=== PATIENT | female | born 1960 | race Caucasian/White ===

== ENCOUNTER 2017-01-13 07:00 | Inpatient (IN) ==
[2017-01-07 14:56] LABS: Basophils % 0.5 % (0.0-0.8); Eosinophils # 0.1 10*3/uL (0.0-0.87); Eosinophils % 1.2 % (0.00-10.9); Hematocrit 34.9 VOL% (35.7-47.0); Hemoglobin 12.3 GM/DL (12.0-16.0); Immature Granulocytes % 0.5 %; Immature Granulocytes Absolute 0.03 #; Lymphocytes % 35.2 % (21.3-54.2); Mean Corpuscular HGB Conc 35.2 GM/DL (32-36); Mean Corpuscular Hemoglobin 30 PG (27-34); Mean Corpuscular Volume 84.5 FL (87-102); Mean Platelet Volume 10.6 FL (9.6-12.0); Monocytes # 0.4 10*3/uL (0.11-0.8); Monocytes % 6.4 % (1.7-12.7); Neutrophils # 3.2 10*3/uL (1.4-7.4); Neutrophils % 56.2 % (38.7-73.9); Platelet Count 221 T/CUMM (130-400); Red Blood Count 4.13 MC/CUMM (3.8-5.5); Red Cell Distribution Width 14.2 % (9.3-17.3); White Blood Count 5.8 T/CUMM (4-12)
--- NOTE | 2017-01-07 14:59 | XRay Report ---
2 view chest January 07, 2017 1456 hours Indication: Shortness of breath Comparison: October 20, 2013 Findings: Cardiomediastinal contours are normal. Lungs are clear bilaterally. No acute osseous abnormalities. Visualized upper abdomen demonstrates no acute pathology. Impression: Normal chest PROCEDURE INTERPRETED AT [facility] DEPARTMENT OF RADIOLOGY Final Report Signed by: Walker Luna
--- NOTE | 2017-01-07 15:01 | EKG Report ---
Stationary ECG Study [facility] Test Date: 01/07/2017 2:59:45 PM Pat Name: GREGORIA FREEDMAN Department: Room: Gender: F Decorator Consultant: EMETERIO 01-13-17 : 1960 Requested by: Tylor Austin Order Number: [id number] Reading MD: TAMEKA PRYOR Intervals [place] Rate: 88 P: 50 RI: 173 QRS: 30 QRSD: 85 T: -13 QT: 322 QTc: 368 Interpretive Statements SINUS RHYTHM LOW QRS VOLTAGE IN PRECORDIAL LEADS Electronically Signed On 01-07-17 20:32:28 CDT by TAMEKA PRYOR [email or web address]
[2017-01-07 15:13] LABS: Partial Thromboplastin Time 23.9 SECS (0-40)
[2017-01-07 15:23] LABS: Albumin 3.5 G/DL (3.4-5.0); Bilirubin,Total 0.4 MG/DL (0.2-1.0); Calcium 9.1 MG/DL (8.5-10.1); Osmolality,Calculated 293.3 MOS/KG (273-304); Potassium 4.3 MMOL/L (3.5-5.1); Total Protein 7.2 G/DL (6.4-8.3)
[~2017-01-13 07:00] MED LIST: LACTATED RINGERS 1,000 ML IV SCH; LEVOFLOXACIN INJ 100 ML IV ONE; LEVOFLOXACIN INJ 500 MG in PREMIX 1 EACH IV ONE
[2017-01-13] MEDS ORDERED: DIAZEPAM 5 MG TABLET PO ONE (08:55)
[2017-01-13] MEDS ORDERED: FAMOTIDINE 20 MG TABLET PO ONE (08:55)
[2017-01-13] MEDS ORDERED: DIAZEPAM 5 MG TABLET ONE (09:00)
[2017-01-13] MEDS ORDERED: FAMOTIDINE 20 MG TABLET ONE (09:00)
--- NOTE | 2017-01-13 11:35 | History and Physical Update ---
History and Physical Update - History and Physical H&P was reviewed, the patient examined and there: are no changes in the patients condition since last H&P was completed. - Dictation Physical: refer to scanned H&P - Physical Exam Mental Status: alert and oriented Heart: regular rate and rhythm Lung: clear to auscultation Abdomen: within normal limits Vitals: within normal limits (Left side marked)
[2017-01-13] MEDS ORDERED: diphenhydrAMINE 50 MG/1 ML VIAL ONE (12:30)
[2017-01-13] MEDS ORDERED: PROPOFOL 200 MG/20 ML VIAL IV ONE (12:30)
[2017-01-13] MEDS ORDERED: ROCURONIUM 100 MG/10 ML VIAL IV ONE (12:30)
[2017-01-13] MEDS ORDERED: PHENYLEPHRINE 1 MG/10 ML SYRINGE IV ONE (12:30)
[2017-01-13] MEDS ORDERED: PHENYLEPHRINE 50 MG/5 ML VIAL ONE (12:30)
[2017-01-13] MEDS ORDERED: LIDOCAINE 1% 5 ML VIAL ONE (12:30)
[2017-01-13] MEDS ORDERED: ONDANSETRON 4 MG/2 ML VIAL ONE (12:30)
--- NOTE | 2017-01-13 16:07 | Operative Note ---
Date of procedure: 01/13/17 Pre-op diagnosis: LEFT Staghorn Calculus Post-op diagnosis: same Procedure: Left Percutaneous Nephrolithotomy with stone extraction Left Antegrade Ureteral stent placement Indication for procedure: This is a 57-year-old female with history of recurrent urinary tract infections and hematuria. She had a CT scan which demonstrated a left complete staghorn calculus. She has a history of diabetes. She also has hypertension. She did have adequate function to this renal unit. Due to this and her comorbidities she elected for PCNL to salvage the kidney. She was given the options of surgical management. She understood the risks benefits and alternatives. She understood the risk of bleeding, infection , even loss of renal unit. She elected to proceed. Procedure in detail: The 57-year-old female was brought to the operating room after informed consent. She was placed supine on the operating table. Proper monitoring devices and SCDs were in place and functioning prior to the start of the case. A Galdamez catheter was placed prior to start of the case. She was induced with general anesthetic. She was then moved prone on the operating table. She was secured to the frame. Initially timeout was performed and the radiologist obtain the lower pole axis to the left kidney. He is unable to obtain upper pole access successfully to get a dilation but he did obtain access. At this point it was elected to proceed with the lower pole access only. After completion of his case portion, the case was turned over to sc Operative timeout, the access sheath was accessed with the rigid nephroscope. The Olympus pull shock device was used to fragment the stone with ultrasound and suction was used to remove the fragments. Several large fragments were grasped with rigid graspers and passed off the field for culture and for stone analysis. The kidney was systematically surveyed in the stone was removed from both lower pole, renal pelvis, interpolar, and upper pole calyces. Finally a flexible cystoscope was used to obtain access to interpolar calyx. These were some's all small fragments that were washed out and then grasped and retrieved. There were no other fragments that we could reach her. It we have appeared to clear over 90% of the stone. Finally a flexible ureteroscope was passed and attempted to pass down the ureter. We are unable to do this as the scope could not make the turn. At this point we placed a 6 Palauan by 24 cm double-J ureteral stent antegrade with a curl in the bladder. The sheath was removed and the lower pole had a 16 Pal[place]an [place] tip catheter placed as a nephrostomy tube. This was left to drainage. The upper pole access area was closed. The patient tolerated procedure well and this concluded the case. She was moved back on the stretcher and transferred to the recovery room in stable condition Will obtain a stat upright chest x-ray due to upper pole access attempt Obtain CBC and BMP Start gentamicin as well as continue Levaquin as there were some pyuria with access. A urine culture was taken and sent for analysis. Implants: 6 Palauan by 24 cm double-J ureteral stent placed antegrade to the left ureter Anesthesia: GETA Surgeon / Physician: Tylor Austin Estimated blood loss: other (50 cc) Specimens: other (Stone fragments for analysis, stone culture, urine culture) Condition: stable Disposition: PACU Results - Labs CBC & BMP: 01/07/17 14:45 01/07/17 14:45 Lab Results: I have reviewed the past 24 hour labs - Diagnostic Findings Procedure: CT Abdomen and Pelvis: image reviewed by me, report reviewed by me Discharge Plan - Discharge Medications No Action Gemfibrozil [Lopid] 600 mg PO BID glipiZIDE [Glipizide] 10 mg PO BID Metformin HCl 1 gram PO BID Gabapentin Cap/Tab [Neurontin Cap/Tab] 300 mg PO BID Nitrofurantoin Macrocrystal [Nitrofurantoin] 100 mg PO Q12HR Liraglutide [Victoza 2-Andi] 0.6 mg SQ DIRECTED Lisinopril 10 mg PO DAILY - Follow Up or Referral - Forms/Instructions
--- NOTE | 2017-01-13 16:08 | Anesthesia Post-Op ---
Anesthesia Post OP - Post Ansesthetic Evaluation Patient seen in post op: Yes Resp: within normal limits CV: within normal limits Mental: within normal limits Temp: within normal limits [id number]: within normal limits Nausea and Vomiting: within normal limits Pain: within normal limits
[2017-01-13] MEDS ORDERED: SEVOFLURANE 1 UNIT/15 MINUTE INH ONE (16:15)
[2017-01-13] MEDS ORDERED: MIDAZOLAM 2 MG/2 ML VIAL ONE (16:16)
[2017-01-13] MEDS ORDERED: HYDROmorphone 2 MG/1 ML VIAL ONE (16:16)
[2017-01-13] MEDS ORDERED: LACTATED RINGERS 1,000 ML IV ONE (16:16)
[2017-01-13] MEDS ORDERED: HYDROmorphone PCA 30 MG/30 ML SYRINGE IV ONE (16:23)
--- NOTE | 2017-01-13 16:24 | XRay Report ---
History: Postop left nephrostomy tube placement and percutaneous nephrolithotomy, left kidney. History of hypertension Date: 01/13/2017 Study: Chest x-ray AP portable Comparison exam: January 07, 2017 There is no evidence of pneumothorax. The cardiac silhouette is upper normal size. There is no mediastinal mass. The lungs and pleural spaces are clear. The osseous structures are unchanged. There is mild to moderate thoracic spondylosis. Impression: No acute cardiopulmonary process. No significant interval change PROCEDURE INTERPRETED AT [facility] DEPARTMENT OF RADIOLOGY Final Report Signed by: Dr. Meli Grigsby
--- NOTE | 2017-01-13 16:26 | Interventional Radiology Rpt ---
IR nephrostomy dil LT Indication: Staghorn calculus left kidney. Percutaneous lithotomy for Dr. Tylor Austin. LEFT PERCUTANEOUS NEPHROSTOMY X2, LEFT ANTEGRADE NEPHROURETEROGRAM X2, LEFT NEPHROMAX SHEATH POSITIONING FOR PERCUTANEOUS LITHOTOMY Description: A formal timeout was performed. Patient was placed under general endotracheal anesthesia and rolled onto the operating table on a Octavio frame in a prone position. The left back was prepped and draped in a sterile fashion. Maximum sterile barrier technique was instituted. Sonographic evaluation of the left kidney shows calculi throughout the kidney, as well as mild pelvic caliectasis of both the upper and lower poles. Skin incision was made. An AccuStick needle was advanced into the lower pole collecting system of the left kidney under sonographic guidance. Captured sonographic image documents position of the needle. Needle was exchanged over a wire for a sheath and an aspirate of cloudy purulent urine was obtained for culture and Gram stain. Antegrade nephroureterogram was performed confirming staghorn calculus with multiple smaller stones throughout the left urinary collecting system and a normal size ureter. Kumpe catheter was then used to cannulate the left ureter. A J-wire was advanced through the Kumpe catheter until the floppy portion was in the urinary bladder. The sheath was removed over the wire and a NephroMax balloon advanced across the skin to renal tract. The NephroMax balloon was inflated, and a 30 Bhutanese no fractures easily advanced into the lower pole of the left collecting system. The sheath, balloon and wire were left in place. Attention was then turned to the upper pole the left kidney which has mild pelvic caliectasis. After making a skin incision, under ultrasound guidance, an AccuStick needle was advanced into the left renal upper pole collecting system. Captured sonographic image documents position of the needle. The urine that return in the hub of the needle was clear and yellow. Therefore, no sample was obtained. Microwire was advanced through the needle and the needle exchanged for a sheath. Through the sheath, antegrade nephroureterogram was again performed showing large filling defect in the infundibulum of the upper pole collecting system and no contrast passage into the renal pelvis indicating complete obstruction. Extensive effort was made with multiple catheters and wires to pass into the left renal pelvis but due to the obstructing staghorn calculus protruding well into the upper pole collecting system, no conduit was established. After discussed with Dr. Austin, access to the upper pole was abandoned. At this point, Dr. Wilhelm over the case for percutaneous lithotomy, details under a separate note. Medications: GETA. Contrast: Total volume not recorded. Estimated 100 cc Omnipaque 350. Fluoroscopy time: Total fluoroscopy time for both the percutaneous intervention by me, as well as the imaging required during performance of the lithotomy by Dr. Austin, 16.0 minutes. Total of 21 captured images. Impression: 1. Successful percutaneous nephrostomy of the lower pole left kidney with placement of a 30 Bhutanese NephroMax sheath for percutaneous lithotomy. 2. Successful percutaneous nephrostomy of the upper pole left kidney. However, antegrade nephroureterogram confirms a obstructing staghorn calculus in the infundibulum of the upper pole and despite extensive effort, unable to pass a wire or catheter beyond the obstructing stone. Therefore, no percutaneous access or drainage left in place for the upper pole. PROCEDURE INTERPRETED AT [facility] DEPARTMENT OF RADIOLOGY Final Report Signed by: Manuelito Velasquez M.D.
[2017-01-13 16:33] LABS: Apearance,Urine CLOUDY (Clear); Bilirubin,Urine Negative (Negative); Blood, Urine Small mg/dL (Negative); Glucose,Urine (UA) >=500 mg/dL (Negative); Ketones,Urine 5 mg/dL (Negative); Mucus,Urine Occasional /LPF (Occasional); Nitrite,Urine Negative (Negative); Protein,Urine Negative; RBC,Urine 2 /HPF (0-4); Squamous Epithelial Cell,Urine Occasional /HPF (0-10); Urine Color Yellow (Yellow); Urine Specific Gravity 1.012 (1.001-1.035); Urine Urobilinogen < 2.0 EU/DL (0.2-1.0); WBC,Urine 7 /HPF (0-6)
[2017-01-13] MEDS: HYDROmorphone PCA 30 MG/30 ML SYRINGE IV SCH (16:33)
[2017-01-13] MEDS ORDERED: LABETALOL 20 MG/4 ML SYRINGE IV ONE (16:47)
[2017-01-13] MEDS ORDERED: ALBUTEROL/IPRATROPIUM 3 ML NEB RESP TX PRN (16:47)
[2017-01-13] MEDS ORDERED: ONDANSETRON 4 MG/2 ML VIAL IV PRN (16:47)
[2017-01-13] MEDS ORDERED: NALOXONE 0.4 MG/ML VIAL IV PRN (16:47)
[2017-01-13] MEDS ORDERED: diphenhydrAMINE 50 MG/1 ML VIAL IV PRN (16:47)
[2017-01-13] MEDS ORDERED: GENTAMICIN INJ 120 MG in PREMIX 1 EACH IV ONE (16:47)
[2017-01-13] MEDS: INSULIN REGULAR 100 UNIT/ML SUBCUT SCH ×2 (17:27→20:48)
[2017-01-13 17:55] LABS: Basophils % 0.2 % (0.0-0.8); Hematocrit 32.2 VOL% (35.7-47.0); Hemoglobin 11.4 GM/DL (12.0-16.0); Immature Granulocytes % 0.5 %; Immature Granulocytes Absolute 0.03 #; Lymphocytes # 0.3 10*3/uL (1.4-4.0); Lymphocytes % 5.9 % (21.3-54.2); Mean Corpuscular HGB Conc 35.4 GM/DL (32-36); Mean Corpuscular Hemoglobin 30 PG (27-34); Mean Platelet Volume 10.9 FL (9.6-12.0); Monocytes % 0.7 % (1.7-12.7); Neutrophils # 5.3 10*3/uL (1.4-7.4); Neutrophils % 92.7 % (38.7-73.9); Platelet Count 177 T/CUMM (130-400); Red Blood Count 3.79 MC/CUMM (3.8-5.5); Red Cell Distribution Width 14.7 % (9.3-17.3); White Blood Count 5.7 T/CUMM (4-12)
[2017-01-13 18:12] LABS: Calcium 8.5 MG/DL (8.5-10.1); Magnesium 1.2 MG/DL (1.8-2.4); Osmolality,Calculated 290.3 MOS/KG (273-304); Potassium 3.7 MMOL/L (3.5-5.1)
[2017-01-13] MEDS: ACETAMINOPHEN 500 MG TABLET PO SCH ×2 (18:19→23:53)
[2017-01-13] MEDS: SODIUM CHLORIDE 0.9% 1,000 ML IV SCH (18:19)
[2017-01-13] MEDS ORDERED: GENTAMICIN INJ 400 MG in SODIUM CHLORIDE 0.9% 100 ML IV ONE (18:30)
[2017-01-13 20:28] LABS: Band Neutrophils 10 % (0-10); Eosinophils 1 % (0-10); Hypochromasia Slight; Lymphocytes 9 % (20-55); Platelet Estimate Adequate; Polychromasia Few; Segmented Neutrophils 77 % (50-85); Total Cells Counted 100
[2017-01-13] MEDS: GABAPENTIN 300 MG CAPSULE PO SCH (20:48)
[2017-01-13] MEDS: hydrALAZINE 25 MG TABLET PO SCH (23:54)
[2017-01-14] MEDS: SODIUM CHLORIDE 0.9% 1,000 ML IV SCH ×3 (02:38→22:23)
[2017-01-14] MEDS: ACETAMINOPHEN 500 MG TABLET PO SCH ×3 (06:12→17:50)
--- NOTE | 2017-01-14 07:05 | Urology Progress Note ---
Assessment and Plan - Time spent with patient Time spent with patient: Less than 30 minutes (1) Staghorn renal calculus Status: Acute Assessment and plan: Postop day 1 status post left PCNL. She has an indwelling ureteral stent and a left nephrostomy tube (16 [place]an [place]al[place] tip catheter). PHILOSOPHY FACULTY for pain control, stone sent for analysis, urine and stone culture pending. We will plan for stent removal in the endoscopy center next week. Current Visit: Yes (2) Pyuria Status: Acute Assessment and plan: Phil pus was noted at time of access. This was sent for culture. Continue Levaquin and gentamicin currently Pharmacy consult for management of gentamicin. I prefer a daily dosing. Cultures are pending Galdamez catheter was removed, but will maintain nephrostomy tube for maximal drainage until at least tomorrow Current Visit: Yes (3) Hematuria Status: Acute Assessment and plan: Continue IV hydration. Leave nephrostomy tube until tomorrow Check CBC in morning Current Visit: Yes (4) Diabetes Status: Chronic Assessment and plan: Sliding scale insulin with fingersticks before meals and at bedtime Start home medications tomorrow. She reports her peripheral neuropathy is actually improved after anesthesia. We will continue her home Neurontin Current Visit: No Qualifiers: Diabetes mellitus type: type 2 Diabetes mellitus complication status: with neurologic complications Diabetes mellitus complication detail: with unspecified neuropathy Diabetes mellitus ad terminal makeup operator insulin use: without mcc use Qualified Code(s): E11.40 - Type 2 diabetes mellitus with diabetic neuropathy, unspecified (5) Hypertension Status: Chronic Assessment and plan: Holding her JAS inhibitor due to recent surgery. Hydralazine and labetalol as needed. Start JAS inhibitor tomorrow Current Visit: No Urology - PN: Subj Interval history: Doing well overnight. She is having good pain control with a PHILOSOPHY FACULTY and scheduled Tylenol. No fevers or chills. She is hungry this morning. Her urine in the Galdamez clear. She does have some hematuria, but no clots and is draining well from the nephrostomy tube. She has not been up and move around yet. We did note pyuria with her initial stick by radiology. These cultures are pending. She has been afebrile. Exam - Constitutional Vitals: Period Temp Pulse Resp BP Sys/Cifuentes Pulse Ox Last 24 Hr 97.1 F-98.3 F 73-95 14-20 92-146/43-82 90-100 General appearance: no acute distress - Head Head exam: Present: normocephalic, atraumatic - Eye Eye exam: Absent: scleral icterus - ENT ENT exam: Present: other (Ulcer to right buccal mucosa) - Neck Neck exam: Present: normal inspection - Respiratory Respiratory exam: Absent: accessory muscle use, stridor, wheezes - Cardiovascular Cardiovascular exam: Present: regular rate and rhythm, other (Warm and well- perfused). Absent: JVD - GI/Abdominal GI/Abdominal exam: Present: normal bowel sounds, soft. Absent: rebound - Genitourinary Genitourinary: external genitalia normal, other (Left nephrostomy tube draining light red urine with no clots) - Extremities Exam Extremities exam: Present: normal capillary refill. Absent: edema - Back Exam Back exam: Present: CVA tenderness (L) (At nephrostomy tube site). Absent: CVA tenderness (R) - Neurological Exam Neurological exam: Present: alert, oriented X3 - Psychiatric Psychiatric exam: Present: normal affect, normal mood - Skin Skin exam: Present: normal color, warm, dry Results - Labs CBC & BMP: 01/13/17 17:30 01/13/17 17:30 Lab Results: I have reviewed the past 24 hour labs - Diagnostic Findings Procedure: Chest x-ray: image reviewed by me, report reviewed by me (No pneumothorax chest x-ray was reviewed in PACU)
[2017-01-14] MEDS: INSULIN REGULAR 100 UNIT/ML SUBCUT SCH ×4 (08:30→22:21)
[2017-01-14] MEDS: GABAPENTIN 300 MG CAPSULE PO SCH ×2 (08:31→22:22)
[2017-01-14] MEDS ORDERED: GLUCAGON 1 MG VIAL IM PRN (08:31)
[2017-01-14] MEDS ORDERED: DEXTROSE 50% 25 GM/50 ML SYRINGE IV PRN (08:31)
[2017-01-14] MEDS: FAMOTIDINE 20 MG TABLET PO SCH (08:31)
[2017-01-14] MEDS: hydrALAZINE 25 MG TABLET PO SCH ×3 (09:17→22:22)
[2017-01-15] MEDS: ACETAMINOPHEN 500 MG TABLET PO SCH ×6 (01:02→23:45)
[2017-01-15 06:20] LABS: Basophils % 0.3 % (0.0-0.8); Eosinophils # 0.1 10*3/uL (0.0-0.87); Eosinophils % 1.1 % (0.00-10.9); Hematocrit 28.2 VOL% (35.7-47.0); Hemoglobin 9.6 GM/DL (12.0-16.0); Immature Granulocytes % 0.5 %; Immature Granulocytes Absolute 0.03 #; Lymphocytes # 1.7 10*3/uL (1.4-4.0); Lymphocytes % 27.8 % (21.3-54.2); Mean Corpuscular Hemoglobin 30 PG (27-34); Mean Corpuscular Volume 87.6 FL (87-102); Mean Platelet Volume 11.3 FL (9.6-12.0); Monocytes # 0.7 10*3/uL (0.11-0.8); Monocytes % 11.7 % (1.7-12.7); Neutrophils # 3.7 10*3/uL (1.4-7.4); Neutrophils % 58.6 % (38.7-73.9); Platelet Count 150 T/CUMM (130-400); Red Blood Count 3.22 MC/CUMM (3.8-5.5); Red Cell Distribution Width 14.5 % (9.3-17.3); White Blood Count 6.3 T/CUMM (4-12)
[2017-01-15 06:40] LABS: Hypochromasia 1+; Microcytosis 1+; Ovalocytes Slight; Platelet Estimate Normal
[2017-01-15 06:41] LABS: Giant Platelets Few
[2017-01-15] MEDS ORDERED: MORPHINE 2 MG/1 ML SYRINGE IM PRN (06:56)
[2017-01-15 07:01] LABS: Calcium 7.9 MG/DL (8.5-10.1); Magnesium 1.7 MG/DL (1.8-2.4); Osmolality,Calculated 293.8 MOS/KG (273-304); Potassium 3.7 MMOL/L (3.5-5.1)
--- NOTE | 2017-01-15 07:11 | Urology Progress Note ---
Assessment and Plan (1) Staghorn renal calculus Status: Acute Assessment and plan: Postop day 2 status post left PCNL. She has an indwelling ureteral stent and a left nephrostomy tube (16 [place] tip catheter). DC SAFETY COMPANION and start oral medication only for pain control, stone sent for analysis , urine and stone culture pending-yeast noted. We will plan for stent removal in the OR tomorrow. Current Visit: Yes (2) Pyuria Status: Acute Assessment and plan: Phil pus was noted at time of access. This was sent for culture. Growing out yeast, but no other bacteria. She had had Levaquin and she had been taking Macrobid orally prior to surgery Continue Levaquin and gentamicin currently Pharmacy consult for management of gentamicin. I prefer a daily dosing. If doing well will stop this tomorrow Cultures are pending-currently no growth except yeast, I have added Diflucan orally Plan to remove nephrostomy tube today. Current Visit: Yes (3) Hematuria Status: Acute Assessment and plan: Continue IV hydration. Hematocrit trending down, but acceptable and expected Check CBC in morning Current Visit: Yes Qualifiers: Hematuria type: gross Qualified Code(s): R31.0 - Gross hematuria (4) Diabetes Status: Chronic Assessment and plan: Sliding scale insulin with fingersticks before meals and at bedtime Start home metformin today. She reports her peripheral neuropathy is actually improved after anesthesia. We will continue her home Neurontin Current Visit: No Qualifiers: Diabetes mellitus type: type 2 Diabetes mellitus complication status: with neurologic complications Diabetes mellitus complication detail: with unspecified neuropathy Diabetes mellitus petroleum terminal plant operator insulin use: without snf use Qualified Code(s): E11.40 - Type 2 diabetes mellitus with diabetic neuropathy, unspecified (5) Hypertension Status: Chronic Assessment and plan: Holding her JAS inhibitor due to recent surgery. DC hydralazine and continue labetalol as needed. Continue to hold JAS inhibitor until tomorrow due to low blood pressure Current Visit: No (6) Anemia due to acute blood loss Status: Acute Assessment and plan: Hematocrit trended down to 28. She had acute blood loss with surgery, and she had a baseline anemia with a baseline hematocrit of 34. She is down with IV fluids and hematuria. We will monitor this and recheck tomorrow. Due to her drop in hemoglobin we will monitor for 1 more day, and she will likely be discharged tomorrow if stable. Current Visit: Yes Urology - PN: Subj Interval history: Feeling better. Tolerating regular diet, bowel movement yesterday. She has been ambulating. She does report some stent pain and hematuria. She is ready to have the nephrostomy tube removed. Her urine has been clearing some. She denies dizziness, chest pain, shortness of breath, or other complaints. She is having minimal pain, and has not been using her Dilaudid SAFETY COMPANION at all. She has been on scheduled Tylenol. Exam - Constitutional Vitals: Period Temp Pulse Resp BP Sys/Cifeuntes Pulse Ox Last 24 Hr 97.4 F-100.6 F 18-97 14-20 95-136/55-90 90-97 General appearance: no acute distress - Head Head exam: Present: normocephalic, atraumatic - Eye Eye exam: Absent: scleral icterus - ENT ENT exam: Present: normal oropharynx - Neck Neck exam: Present: normal inspection. Absent: lymphadenopathy - Respiratory Respiratory exam: Present: clear to auscultation bilaterally. Absent: wheezes - Cardiovascular Cardiovascular exam: Present: regular rate and rhythm. Absent: JVD - GI/Abdominal GI/Abdominal exam: Present: normal bowel sounds, soft. Absent: tenderness, rebound - Genitourinary Genitourinary: external genitalia normal, other (Left nephrostomy tube with light pink urine in tubing) - Extremities Exam Extremities exam: Present: normal capillary refill - Back Exam Back exam: Present: CVA tenderness (L) (Appropriate at nephrostomy tube site). Absent: CVA tenderness (R) - Neurological Exam Neurological exam: Present: alert, oriented X3 - Psychiatric Psychiatric exam: Present: normal affect, normal mood - Skin Skin exam: Present: warm, dry Results - Labs CBC & BMP: 01/15/17 04:49 01/15/17 04:49 Lab Results: I have reviewed the past 24 hour labs
[2017-01-15] MEDS ORDERED: TISSUE ADHESIVE 1 EACH APPLICATOR TOP ONE (07:54)
[2017-01-15] MEDS: INSULIN REGULAR 100 UNIT/ML SUBCUT SCH ×4 (08:44→22:13)
[2017-01-15] MEDS: FLUCONAZOLE 200 MG TABLET PO SCH (08:45)
[2017-01-15] MEDS: GABAPENTIN 300 MG CAPSULE PO SCH ×2 (08:45→22:14)
[2017-01-15] MEDS: FAMOTIDINE 20 MG TABLET PO SCH (08:45)
[2017-01-15] MEDS: metFORMIN 500 MG TABLET PO SCH ×4 (08:46→16:44)
[2017-01-15] MEDS: HYDROmorphone PCA 30 MG/30 ML SYRINGE IV SCH (11:50)
[2017-01-15] MEDS: SODIUM CHLORIDE 0.9% 1,000 ML IV SCH (12:39)
--- NOTE | 2017-01-15 15:51 | Event Note ---
Urine from nephrostomy tube has cleared. Nephrostomy to remove this afternoon. Urostomy bag placed over access site. We will DC her IV fluids. Plan to remove stent tomorrow in the OR. Likely home tomorrow afternoon. We will repeat labs in the morning.
--- NOTE | 2017-01-16 07:05 | Urology Progress Note ---
Assessment and Plan (1) Staghorn renal calculus Status: Acute Assessment and plan: Postop day 2 status post left PCNL. She has an indwelling ureteral stent and a left nephrostomy tube (16 Yakut red devil tip catheter). Oral medication only for pain control, stone sent for analysis, urine and stone culture pending-yeast noted. We will plan for stent removal in the OR this morning. Current Visit: Yes (2) Pyuria Status: Acute Assessment and plan: Phil pus was noted at time of access. This was sent for culture. Growing out yeast, but no other bacteria. She had had Levaquin and she had been taking Macrobid orally prior to surgery Continue Levaquin and gentamicin currently Pharmacy consult for management of gentamicin. I prefer a daily dosing. If doing well will stop this tomorrow Cultures are pending-currently no growth except yeast, I have added Diflucan orally Plan to remove left ureteral stent today. Current Visit: Yes (3) Hematuria Status: Acute Assessment and plan: Continue IV hydration. Hematocrit trending down, but acceptable and expected Check CBC Improving Current Visit: Yes Qualifiers: Hematuria type: gross Qualified Code(s): R31.0 - Gross hematuria (4) Diabetes Status: Chronic Assessment and plan: Sliding scale insulin with fingersticks before meals and at bedtime Home medication today She reports her peripheral neuropathy is actually improved after anesthesia. We will continue her home Neurontin Current Visit: No Qualifiers: Diabetes mellitus type: type 2 Diabetes mellitus complication status: with neurologic complications Diabetes mellitus complication detail: with unspecified neuropathy Diabetes mellitus care home insulin use: without roasterman use Qualified Code(s): E11.40 - Type 2 diabetes mellitus with diabetic neuropathy, unspecified (5) Hypertension Status: Chronic Assessment and plan: Holding her JAS inhibitor due to recent surgery. continue labetalol as needed. Restart JAS inhibitor today Current Visit: No (6) Anemia due to acute blood loss Status: Acute Assessment and plan: Hematocrit trended down to 28. She had acute blood loss with surgery, and she had a baseline anemia with a baseline hematocrit of 34. She is down with IV fluids and hematuria. Repeat CBC this morning She will likely be discharged tomorrow if stable. Current Visit: Yes Urology - PN: Subj Interval history: No acute events overnight. She did have some trouble sleeping. She did well with her nephrostomy tube out. She is ready for her stent removal this morning. No nausea vomiting. Tolerating a regular diet. Having bowel movements. Urine slightly but bloody but improving. Exam - Constitutional Vitals: Period Temp Pulse Resp BP Sys/Cifuentes Pulse Ox Last 24 Hr 96.4 F-98.9 F 69-84 18-20 99-120/51-68 90-97 General appearance: no acute distress - Head Head exam: Present: normocephalic, atraumatic - Eye Eye exam: Absent: periorbital swelling - ENT ENT exam: Present: normal oropharynx - Neck Neck exam: Present: normal inspection - Respiratory Respiratory exam: Absent: accessory muscle use, stridor, wheezes - Cardiovascular Cardiovascular exam: Present: regular rate and rhythm. Absent: JVD - GI/Abdominal GI/Abdominal exam: Present: soft, other (Urostomy bag to left flank). Absent: tenderness, rebound - Genitourinary Genitourinary: external genitalia normal Results - Labs CBC & BMP: 01/15/17 04:49 01/15/17 04:49 Lab Results: I have reviewed the past 24 hour labs
[2017-01-16] MEDS ORDERED: PROPOFOL 200 MG/20 ML VIAL IV ONE (07:11)
[2017-01-16] MEDS ORDERED: LIDOCAINE 2% 5 ML VIAL ONE (07:11)
--- NOTE | 2017-01-16 07:39 | Operative Note ---
Date of procedure: 01/16/17 Pre-op diagnosis: Right renal stone; Retained right ureteral stent Post-op diagnosis: same Procedure: Cystoscopy with stent removal Indication for procedure: This is a 57-year-old female who recently underwent a right PCNL. She had antegrade stent placed Intra-Op. She has had this for 3 days. She has difficulty with travel, and she has elected for stent removal prior to discharge. Procedure in detail: After informed consent, the patient brought to the operating room. She was placed in the supine position. She received IV sedation. She was frog legged on the stretcher, and genitalia was prepped and draped in standard fashion. Timeout was performed and a flexible 16 Zimbabwean cystoscope with camera was used to intubate the urethral meatus. The distal curl of the stent was noted. The flexible grasper used to grasp the stent and it was removed completely intact. Patient tolerated procedure well. She was allowed to awaken, and transferred back to the floor. Implants: Removed 6 Zimbabwean by 24 cm double-J ureteral stent completely intact. Anesthesia: conscious sedation Surgeon / Physician: Tylor Austin Estimated blood loss: none Specimens: none sent Condition: stable Disposition: floor Results - Labs CBC & BMP: 01/15/17 04:49 01/15/17 04:49 Lab Results: I have reviewed the past 24 hour labs Discharge Plan - Discharge Medications No Action Gemfibrozil [Lopid] 600 mg PO BID glipiZIDE [Glipizide] 10 mg PO BID Metformin HCl 1 gram PO BID Gabapentin Cap/Tab [Neurontin Cap/Tab] 300 mg PO BID Nitrofurantoin Macrocrystal [Nitrofurantoin] 100 mg PO Q12HR Liraglutide [Victoza 2-Andi] 0.6 mg SQ DIRECTED Lisinopril 10 mg PO DAILY - Follow Up or Referral - Forms/Instructions
[2017-01-16] MEDS ORDERED: HYDROmorphone 2 MG/1 ML VIAL IV PRN (07:40)
[2017-01-16] MEDS ORDERED: ONDANSETRON 4 MG/2 ML VIAL IV PRN (07:40)
--- NOTE | 2017-01-16 07:40 | Anesthesia Post-Op ---
Anesthesia Post OP - Post Ansesthetic Evaluation Patient seen in post op: Yes Resp: within normal limits CV: within normal limits Mental: within normal limits Temp: within normal limits [id number]: within normal limits Nausea and Vomiting: within normal limits Pain: within normal limits
[2017-01-16] MEDS: ACETAMINOPHEN 500 MG TABLET PO SCH ×3 (07:45→12:23)
[2017-01-16] MEDS ORDERED: SODIUM CHLORIDE 0.9% 1,000 ML IV SCH (08:00)
[2017-01-16] MEDS ORDERED: DEXTROSE 50% 25 GM/50 ML SYRINGE IV PRN (08:03)
[2017-01-16] MEDS ORDERED: GLUCAGON 1 MG VIAL IM PRN (08:03)
[2017-01-16] MEDS ORDERED: LIDOCAINE 2% TOP JELLY 20 ML VIAL INTRAURETH ONE (08:57)
[2017-01-16] MEDS: GABAPENTIN 300 MG CAPSULE PO SCH (09:30)
[2017-01-16] MEDS: metFORMIN 500 MG TABLET PO SCH ×3 (09:31→10:40)
[2017-01-16] MEDS: INSULIN REGULAR 100 UNIT/ML SUBCUT SCH ×2 (09:31→12:22)
[2017-01-16] MEDS: FAMOTIDINE 20 MG TABLET PO SCH (09:31)
[2017-01-16] MEDS: FLUCONAZOLE 200 MG TABLET PO SCH (09:31)
[2017-01-16] MEDS ORDERED: fentaNYL 100 MCG/2 ML VIAL ONE (10:18)
[2017-01-16] MEDS ORDERED: MIDAZOLAM 2 MG/2 ML VIAL ONE (10:18)
[2017-01-16 10:47] LABS: Basophils % 0.6 % (0.0-0.8); Eosinophils # 0.1 10*3/uL (0.0-0.87); Hematocrit 28.4 VOL% (35.7-47.0); Hemoglobin 9.9 GM/DL (12.0-16.0); Immature Granulocytes % 0.6 %; Immature Granulocytes Absolute 0.03 #; Lymphocytes # 1.4 10*3/uL (1.4-4.0); Lymphocytes % 26.9 % (21.3-54.2); Mean Corpuscular HGB Conc 34.9 GM/DL (32-36); Mean Corpuscular Hemoglobin 30 PG (27-34); Mean Corpuscular Volume 85.5 FL (87-102); Mean Platelet Volume 10.7 FL (9.6-12.0); Monocytes # 0.3 10*3/uL (0.11-0.8); Monocytes % 6.7 % (1.7-12.7); Neutrophils # 3.2 10*3/uL (1.4-7.4); Neutrophils % 63.2 % (38.7-73.9); Platelet Count 164 T/CUMM (130-400); Red Blood Count 3.32 MC/CUMM (3.8-5.5); Red Cell Distribution Width 14.5 % (9.3-17.3); White Blood Count 5.1 T/CUMM (4-12)
--- NOTE | 2017-01-16 10:48 | Discharge Summary ---
Hospital Course - Hospital Course Hospital Course: Admitted on 01/13/2017 for left PCNL. She had purulence on access of her left renal unit. She was given antibiotics, and then underwent an uncomplicated PCNL. She had clearance of over 90% of her stone burden. She had a antegrade stent placed. She did have hematuria and bleeding. She had baseline anemia, and she was monitored closely for this. She continued to improve clinically. She has done very well. The PCN was removed yesterday. She is voiding. She is tolerating a regular diet, pain is well controlled, she is ambulatory, and feeling well. She was taken for cystoscopy and stent removal this morning. She is now free of all tubes. Her urine cultures are growing only Charity, and so all antibiotics are stopped except fluconazole. She is stable, and she is felt ready to be discharged home. Her glucose has been elevated, despite adding back her Metformin. She will restart all her home meds, except hold her lisinopril until seen by her primary care provider. - Time spent with patient Time with patient DS: Less than 30 minutes Diagnosis - Discharge Diagnosis (1) Staghorn renal calculus Status: Acute (2) Pyuria Status: Acute (3) Hematuria Status: Acute (4) Diabetes Status: Chronic (5) Hypertension Status: Chronic (6) Anemia due to acute blood loss Status: Acute Specialty Discharge - Follow Up or Referrals Follow up with: Tylor Austin MD [Physician] - 01/21/17 (Follow up in clinic on Thu or of next week) - Speciality Discharge Instructions Urology Instructions: Increase oral intake of fluids. No strenuous activity. No lifting greater than [address] while using narcotics. Discharge Plan - Discharge Data Disposition: Disch To Home/Self Care Condition at Discharge: Stable Discharge Diet: diabetic diet, other (Increase fluid intake) Activity: resume usual activities as tolerated Hygiene: may shower Weight Bearing at Discharge: full weight bearing Driving: other (Do not drive while using narcotics) Contact your physician if you experience:: fever over 101, Difficulty voiding, Redness or swelling, Nausea/Vomiting, Shortness of breath, Bleeding - Discharge Medications New Acetaminophen Tab [Tylenol Tab] 500 mg PO Q6HR tablet Fluconazole Tab [Diflucan Tab] 200 mg PO DAILY #5 tablet HYDROcodone/ACETAMIN 5-325 [[place] 5-325] 1 tablet PO Q6H PRN #30 tablet PRN Reason: Pain Moderate To Severe (4-10) Continue Gemfibrozil [Lopid] 600 mg PO BID glipiZIDE [Glipizide] 10 mg PO BID Metformin HCl 1 gram PO BID Gabapentin Cap/Tab [Neurontin Cap/Tab] 300 mg PO BID Liraglutide [Victoza 2-Andi] 0.6 mg SQ DIRECTED Lisinopril 10 mg PO DAILY Discontinued Nitrofurantoin Macrocrystal [Nitrofurantoin] 100 mg PO Q12HR - Follow Up or Referral - Forms/Instructions Exam - Constitutional Vitals: Period Temp Pulse Resp BP Sys/Cifuentes Pulse Ox Last 24 Hr 96.4 F-98.7 F 69-83 18-20 99-120/51-68 90-97 General appearance: no acute distress - Head Head exam: Present: normal inspection, normocephalic - Eye Eye exam: Absent: scleral icterus - ENT ENT exam: Present: normal oropharynx - Respiratory Respiratory exam: Present: clear to auscultation bilaterally. Absent: accessory muscle use, stridor, wheezes - Cardiovascular Cardiovascular exam: Present: regular rate and rhythm. Absent: JVD - GI/Abdominal GI/Abdominal exam: Present: soft. Absent: tenderness, rebound - Extremities Exam Extremities exam: Present: normal capillary refill. Absent: edema - Back Exam Back exam: Present: CVA tenderness (L) (Mild at incision site, no erythema or evidence of cellulitis). Absent: CVA tenderness (R) - Neurological Exam Neurological exam: Present: alert, oriented X3 - Psychiatric Psychiatric exam: Present: normal affect, normal mood - Skin Skin exam: Present: warm, dry Discharge Results Procedures and tests throughout hospitalization: Pending Orders 01/13/17 Kidney Stone Analysis Routine 01/16/17 04:00 BMP [Basic Metabolic Panel] IN AM CBC [Comp Blood Count Auto Diff] IN AM Labs on day of discharge: Labs from last 24 hours 01/16/17 01/15/17 01/15/17 08:40 21:59 15:54 POC Glucose 300 H 395 H 373 H 01/15/17 11:31 POC Glucose 432 H - Imaging and Cardiology Cardiology Procedure: image reviewed by me, report reviewed by me (Preop EKG) Procedure: CT Abdomen and Pelvis: image reviewed by me, report reviewed by me ( Independently reviewed) DS: Provider Date of admission: 01/13/17 08:28 Primary care physician: Samantha Miranda Attending physician on admission: Tylor Austin MD Consults: 01/15/17 07:28 Consult to Anesthesiology [CONS] Routine Consulting Provider: Reason for Anesthesiology: Pre-op Clearance Discharging clinician: Tylor Austin MD Expected date of discharge: 01/16/17
[2017-01-16 11:26] LABS: Calcium 8.3 MG/DL (8.5-10.1); Potassium 3.7 MMOL/L (3.5-5.1)
[2017-01-16 12:27] VITALS: BP 125/75
[2017-01-17 13:01] LABS: Stone Source Passed Stone
== END 2017-01-16 14:46 | disposition home or self-care (01) | DRG 660 ==
LOC: EDSTATUS 07:00 → N.SDSINP 08:28 → N.RAD 08:28 → N.5E 16:30
PROVIDERS: ADMIT Surgery; ATTEND Surgery

== ENCOUNTER 2017-06-03 09:51 | Inpatient (IN) ==
[2017-05-26 11:21] LABS: Basophils % 0.4 % (0.0-0.8); Eosinophils # 0.1 10*3/uL (0.0-0.87); Hematocrit 36.3 VOL% (35.7-47.0); Hemoglobin 12.1 GM/DL (12.0-16.0); Immature Granulocytes % 0.5 %; Immature Granulocytes Absolute 0.04 #; Lymphocytes # 2.2 10*3/uL (1.4-4.0); Lymphocytes % 29.3 % (21.3-54.2); Mean Corpuscular HGB Conc 33.3 GM/DL (32-36); Mean Corpuscular Hemoglobin 28 PG (27-34); Mean Corpuscular Volume 82.9 FL (87-102); Mean Platelet Volume 10.4 FL (9.6-12.0); Monocytes # 0.4 10*3/uL (0.11-0.8); Monocytes % 5.6 % (1.7-12.7); Neutrophils # 4.7 10*3/uL (1.4-7.4); Neutrophils % 63.2 % (38.7-73.9); Platelet Count 237 T/CUMM (130-400); Red Blood Count 4.38 MC/CUMM (3.8-5.5); Red Cell Distribution Width 15.4 % (9.3-17.3); White Blood Count 7.4 T/CUMM (4-12)
[2017-05-26 12:07] LABS: Albumin 3.6 G/DL (3.4-5.0); Bilirubin,Total 0.5 MG/DL (0.2-1.0); Calcium 9.7 MG/DL (8.5-10.1); Osmolality,Calculated 284.4 MOS/KG (273-304); Potassium 4.3 MMOL/L (3.5-5.1); Total Protein 7.3 G/DL (6.4-8.3)
[~2017-06-03 09:51] MED LIST changes: -LACTATED RINGERS 1,000 ML IV SCH; +LEVOFLOXACIN 500 MG TABLET PO ONE; -LEVOFLOXACIN INJ 100 ML IV ONE; -LEVOFLOXACIN INJ 500 MG in PREMIX 1 EACH IV ONE
[2017-06-03] MEDS: LACTATED RINGERS 1,000 ML IV SCH ×2 (10:25→13:10)
[2017-06-03] MEDS ORDERED: LEVOFLOXACIN 500 MG TABLET ONE (10:33)
[2017-06-03] MEDS ORDERED: fentaNYL 100 MCG/2 ML VIAL ONE (13:36)
[2017-06-03] MEDS ORDERED: SEVOFLURANE 1 UNIT/15 MINUTE INH ONE (13:45)
[2017-06-03] MEDS ORDERED: PROPOFOL 200 MG/20 ML VIAL IV ONE (13:45)
[2017-06-03] MEDS ORDERED: MIDAZOLAM 2 MG/2 ML VIAL ONE (13:45)
[2017-06-03] MEDS ORDERED: ONDANSETRON 4 MG/2 ML VIAL ONE (13:46)
[2017-06-03] MEDS ORDERED: LACTATED RINGERS 1,000 ML IV ONE (13:46)
[2017-06-03 14:36] LABS: Apearance,Urine Slightly Hazy (Clear); Bacteria,Urine Occasional /HPF (Few); Bilirubin,Urine Negative (Negative); Blood, Urine Moderate mg/dL (Negative); Glucose,Urine (UA) 50 mg/dL (Negative); Ketones,Urine Negative (Negative); Nitrite,Urine Negative (Negative); Protein,Urine Negative; RBC,Urine 101 /HPF (0-4); Urine Color Straw (Yellow); Urine Specific Gravity 1.015 (1.001-1.035); Urine Urobilinogen < 2.0 EU/DL (0.2-1.0); WBC,Urine 192 /HPF (0-6)
[2017-06-03] MEDS ORDERED: MORPHINE 2 MG/1 ML SYRINGE IV PRN (14:51)
[2017-06-03] MEDS ORDERED: DEXTROSE 50% 25 GM/50 ML VIAL IV PRN (14:51)
[2017-06-03] MEDS ORDERED: Liraglutide [Victoza 2-Pak] 0.6 MG SQ SCH (14:51)
[2017-06-03] MEDS ORDERED: GLUCAGON 1 MG VIAL IM PRN (14:51)
[2017-06-03] MEDS: FLUCONAZOLE INJ 400 MG in PREMIX 1 EACH IV SCH (16:23)
[2017-06-03] MEDS: SODIUM CHLORIDE 0.9% 1,000 ML IV SCH (16:23)
[2017-06-03] MEDS: INSULIN REGULAR 100 UNIT/ML SUBCUT SCH ×2 (16:26→22:47)
[2017-06-03] MEDS: metFORMIN 500 MG TABLET PO SCH (21:31)
[2017-06-03] MEDS: TAMSULOSIN 0.4 MG CAPSULE PO SCH (21:31)
[2017-06-03] MEDS: GABAPENTIN 300 MG CAPSULE PO SCH (21:31)
[2017-06-04] MEDS: SODIUM CHLORIDE 0.9% 1,000 ML IV SCH ×2 (02:27→11:38)
[2017-06-04 07:07] LABS: Basophils % 0.4 % (0.0-0.8); Eosinophils % 0.6 % (0.00-10.9); Hemoglobin 10.5 GM/DL (12.0-16.0); Immature Granulocytes % 0.6 %; Immature Granulocytes Absolute 0.04 #; Lymphocytes # 1.7 10*3/uL (1.4-4.0); Lymphocytes % 24.9 % (21.3-54.2); Mean Corpuscular HGB Conc 33.9 GM/DL (32-36); Mean Corpuscular Hemoglobin 28 PG (27-34); Mean Platelet Volume 11.3 FL (9.6-12.0); Monocytes # 0.5 10*3/uL (0.11-0.8); Monocytes % 7.7 % (1.7-12.7); Neutrophils # 4.5 10*3/uL (1.4-7.4); Neutrophils % 65.8 % (38.7-73.9); Platelet Count 210 T/CUMM (130-400); Red Blood Count 3.78 MC/CUMM (3.8-5.5); White Blood Count 6.8 T/CUMM (4-12)
[2017-06-04 07:35] LABS: Calcium 8.1 MG/DL (8.5-10.1); Osmolality,Calculated 290.1 MOS/KG (273-304)
[2017-06-04] MEDS: INSULIN REGULAR 100 UNIT/ML SUBCUT SCH ×4 (07:54→21:21)
[2017-06-04] MEDS: GABAPENTIN 300 MG CAPSULE PO SCH ×3 (07:54→21:18)
[2017-06-04] MEDS: metFORMIN 500 MG TABLET PO SCH ×3 (10:16→21:20)
[2017-06-04] MEDS ORDERED: MAGNESIUM SULF RIDER 2 GM in PREMIX 1 EACH IV ONE (10:19)
[2017-06-04] MEDS: LACTATED RINGERS 1,000 ML IV SCH (11:40)
[2017-06-04] MEDS: FLUCONAZOLE INJ 400 MG in PREMIX 1 EACH IV SCH (16:58)
[2017-06-04] MEDS: TAMSULOSIN 0.4 MG CAPSULE PO SCH (21:18)
[2017-06-05] MEDS: SODIUM CHLORIDE 0.9% 1,000 ML IV SCH ×3 (02:48→17:03)
[2017-06-05] MEDS: INSULIN REGULAR 100 UNIT/ML SUBCUT SCH ×4 (08:49→21:59)
[2017-06-05] MEDS: LACTATED RINGERS 1,000 ML IV SCH (10:59)
[2017-06-05] MEDS ORDERED: GENTAMICIN 80 MG/2 ML VIAL ONE (11:13)
[2017-06-05] MEDS ORDERED: DEXTROSE 50% 25 GM/50 ML VIAL IV PRN (12:42)
[2017-06-05] MEDS ORDERED: GLUCAGON 1 MG VIAL IM PRN (12:42)
[2017-06-05] MEDS ORDERED: PROPOFOL 200 MG/20 ML VIAL IV ONE (12:50)
[2017-06-05] MEDS ORDERED: SEVOFLURANE 1 UNIT/15 MINUTE INH ONE (12:50)
[2017-06-05] MEDS ORDERED: ONDANSETRON 4 MG/2 ML VIAL ONE (12:51)
[2017-06-05] MEDS ORDERED: ROCURONIUM 100 MG/10 ML VIAL IV ONE (12:51)
[2017-06-05] MEDS ORDERED: GLYCOPYRROLATE 0.4 MG/2 ML VIAL ONE (12:51)
[2017-06-05] MEDS ORDERED: fentaNYL 100 MCG/2 ML VIAL ONE (12:51)
[2017-06-05] MEDS ORDERED: NEOSTIGMINE 10 MG/10 ML VIAL ONE (12:51)
[2017-06-05] MEDS ORDERED: MIDAZOLAM 2 MG/2 ML VIAL ONE (12:51)
[2017-06-05] MEDS: metFORMIN 500 MG TABLET PO SCH ×2 (14:59→21:59)
[2017-06-05] MEDS: FLUCONAZOLE INJ 400 MG in PREMIX 1 EACH IV SCH (16:55)
[2017-06-05] MEDS: GABAPENTIN 300 MG CAPSULE PO SCH ×2 (17:02→21:59)
[2017-06-05] MEDS ORDERED: ACETAMINOPHEN 325 MG TABLET PO PRN (17:05)
[2017-06-05] MEDS: TAMSULOSIN 0.4 MG CAPSULE PO SCH (21:59)
[2017-06-06 04:31] LABS: Basophils % 0.6 % (0.0-0.8); Eosinophils # 0.1 10*3/uL (0.0-0.87); Eosinophils % 1.7 % (0.00-10.9); Hematocrit 29.1 VOL% (35.7-47.0); Hemoglobin 9.6 GM/DL (12.0-16.0); Immature Granulocytes % 0.3 %; Immature Granulocytes Absolute 0.02 #; Lymphocytes # 2.2 10*3/uL (1.4-4.0); Lymphocytes % 34.4 % (21.3-54.2); Mean Corpuscular Hemoglobin 28 PG (27-34); Mean Corpuscular Volume 83.9 FL (87-102); Mean Platelet Volume 11.1 FL (9.6-12.0); Monocytes # 0.5 10*3/uL (0.11-0.8); Monocytes % 8.1 % (1.7-12.7); Neutrophils # 3.6 10*3/uL (1.4-7.4); Neutrophils % 54.9 % (38.7-73.9); Platelet Count 206 T/CUMM (130-400); Red Blood Count 3.47 MC/CUMM (3.8-5.5); White Blood Count 6.5 T/CUMM (4-12)
[2017-06-06 04:49] LABS: Calcium 8.3 MG/DL (8.5-10.1); Osmolality,Calculated 286.1 MOS/KG (273-304); Potassium 3.9 MMOL/L (3.5-5.1)
[2017-06-06 05:32] VITALS: BP 110/62
[2017-06-06] MEDS: SODIUM CHLORIDE 0.9% 1,000 ML IV SCH (05:36)
[2017-06-06] MEDS: metFORMIN 500 MG TABLET PO SCH (08:43)
[2017-06-06] MEDS: GABAPENTIN 300 MG CAPSULE PO SCH (08:44)
[2017-06-06] MEDS: INSULIN REGULAR 100 UNIT/ML SUBCUT SCH (08:47)
[2017-06-10 16:22] LABS: Stone Source Passed Stone
== END 2017-06-06 10:30 | disposition home or self-care (01) | DRG 669 ==
LOC: N.OR 09:51 → N.SDSINP 09:52 → N.5E 14:42
PROVIDERS: ADMIT Surgery; ATTEND Surgery

== ENCOUNTER 2017-11-19 05:58 | Inpatient (IN) ==
[2017-11-13 10:06] LABS: Basophils % 0.7 % (0.0-0.8); Eosinophils # 0.1 10*3/uL (0.0-0.87); Eosinophils % 1.5 % (0.00-10.9); Hematocrit 35.7 VOL% (35.7-47.0); Hemoglobin 12.4 GM/DL (12.0-16.0); Immature Granulocytes % 0.4 %; Immature Granulocytes Absolute 0.02 #; Lymphocytes # 1.9 10*3/uL (1.4-4.0); Lymphocytes % 36.2 % (21.3-54.2); Mean Corpuscular HGB Conc 34.7 GM/DL (32-36); Mean Corpuscular Hemoglobin 30 PG (27-34); Mean Corpuscular Volume 85.4 FL (87-102); Mean Platelet Volume 10.9 FL (9.6-12.0); Monocytes # 0.4 10*3/uL (0.11-0.8); Monocytes % 7.5 % (1.7-12.7); Neutrophils # 2.9 10*3/uL (1.4-7.4); Neutrophils % 53.7 % (38.7-73.9); Platelet Count 246 T/CUMM (130-400); Red Blood Count 4.18 MC/CUMM (3.8-5.5); Red Cell Distribution Width 13.9 % (9.3-17.3); White Blood Count 5.4 T/CUMM (4-12)
[2017-11-13 10:38] LABS: Albumin 3.1 G/DL (3.4-5.0); Bilirubin,Total 0.4 MG/DL (0.2-1.0); Calcium 9.6 MG/DL (8.5-10.1); Osmolality,Calculated 288.4 MOS/KG (273-304); Potassium 4.2 MMOL/L (3.5-5.1); Total Protein 7.4 G/DL (6.4-8.3)
[2017-11-19] MEDS ORDERED: LEVOFLOXACIN INJ 500 MG in PREMIX 1 EACH IV ONE (06:00)
[2017-11-19] MEDS: LACTATED RINGERS 1,000 ML IV SCH ×2 (06:22→09:00)
[2017-11-19] MEDS ORDERED: DIAZEPAM 5 MG TABLET PO ONE (06:24)
[2017-11-19] MEDS ORDERED: PANTOPRAZOLE 40 MG TABLET PO ONE ×2 (06:24→06:38)
[2017-11-19] MEDS ORDERED: LEVOFLOXACIN INJ 100 ML IV ONE (06:38)
[2017-11-19] MEDS ORDERED: DIAZEPAM 5 MG TABLET ONE (06:38)
[2017-11-19] MEDS ORDERED: INSULIN REGULAR 100 UNIT/ML ONE (09:30)
[2017-11-19] MEDS ORDERED: BUPIVACAINE 0.25% /EPI 10 ML VIAL ONE ×3 (09:30→11:37)
[2017-11-19] MEDS ORDERED: BUPIVACAINE 0.5% 50 ML VIAL ONE (09:30)
[2017-11-19 09:39] LABS: Apearance,Urine CLEAR (Clear); Bilirubin,Urine Negative (Negative); Blood, Urine Small mg/dL (Negative); Glucose,Urine (UA) >=500 mg/dL (Negative); Ketones,Urine Negative (Negative); Mucus,Urine Occasional /LPF (Occasional); Nitrite,Urine Negative (Negative); Protein,Urine Negative; RBC,Urine 2 /HPF (0-4); Squamous Epithelial Cell,Urine Occasional /HPF (0-10); Urine Color Yellow (Yellow); Urine Specific Gravity 1.017 (1.001-1.035); Urine Urobilinogen < 2.0 EU/DL (0.2-1.0); WBC,Urine 10 /HPF (0-6)
[2017-11-19] MEDS ORDERED: ROPIVACAINE 0.5% 30 ML VIAL ONE (11:56)
[2017-11-19] MEDS ORDERED: DEXTROSE 50% 25 GM/50 ML VIAL IV PRN (12:13)
[2017-11-19] MEDS ORDERED: PROMETHAZINE 25 MG/1 ML VIAL IM PRN (12:13)
[2017-11-19] MEDS ORDERED: GLUCAGON 1 MG VIAL IM PRN (12:13)
[2017-11-19] MEDS ORDERED: ONDANSETRON 4 MG/2 ML VIAL IV PRN ×2 (12:13→13:07)
[2017-11-19] MEDS ORDERED: diphenhydrAMINE 50 MG/1 ML VIAL IV PRN (12:19)
[2017-11-19] MEDS ORDERED: NALOXONE 0.4 MG/ML VIAL IV PRN (12:21)
[2017-11-19] MEDS ORDERED: MORPHINE PCA 30 MG/30 ML SYRINGE IV SCH (12:30)
[2017-11-19] MEDS ORDERED: INSULIN REGULAR 100 UNIT/ML IV ONE (12:45)
[2017-11-19] MEDS ORDERED: PROPOFOL 200 MG/20 ML VIAL IV ONE (12:47)
[2017-11-19] MEDS ORDERED: ONDANSETRON 4 MG/2 ML VIAL ONE (12:48)
[2017-11-19] MEDS ORDERED: SEVOFLURANE 1 UNIT/15 MINUTE INH ONE (12:48)
[2017-11-19] MEDS ORDERED: MIDAZOLAM 2 MG/2 ML VIAL ONE (12:48)
[2017-11-19] MEDS ORDERED: ROCURONIUM 100 MG/10 ML VIAL IV ONE (12:49)
[2017-11-19] MEDS ORDERED: PHENYLEPHRINE 1 MG/10 ML SYRINGE IV ONE (12:49)
[2017-11-19] MEDS ORDERED: LACTATED RINGERS 4,000 ML IV ONE (12:49)
[2017-11-19] MEDS ORDERED: HYDROmorphone 2 MG/1 ML VIAL IV PRN (13:07)
[2017-11-19] MEDS ORDERED: MEPERIDINE 25 MG/1 ML VIAL IV PRN (13:07)
[2017-11-19] MEDS: SODIUM CHLORIDE 0.9% 1,000 ML IV SCH (14:21)
[2017-11-19] MEDS: ACETAMINOPHEN 325 MG TABLET PO SCH ×3 (14:41→21:46)
[2017-11-19 15:21] LABS: Basophils % 0.2 % (0.0-0.8); Hematocrit 33.9 VOL% (35.7-47.0); Hemoglobin 11.5 GM/DL (12.0-16.0); Immature Granulocytes % 0.5 %; Immature Granulocytes Absolute 0.06 #; Lymphocytes # 0.6 10*3/uL (1.4-4.0); Lymphocytes % 5.2 % (21.3-54.2); Mean Corpuscular HGB Conc 33.9 GM/DL (32-36); Mean Corpuscular Hemoglobin 29 PG (27-34); Mean Corpuscular Volume 86.7 FL (87-102); Mean Platelet Volume 10.8 FL (9.6-12.0); Monocytes # 0.4 10*3/uL (0.11-0.8); Monocytes % 3.8 % (1.7-12.7); Neutrophils # 10.5 10*3/uL (1.4-7.4); Neutrophils % 90.3 % (38.7-73.9); Platelet Count 208 T/CUMM (130-400); Red Blood Count 3.91 MC/CUMM (3.8-5.5); Red Cell Distribution Width 14.1 % (9.3-17.3); White Blood Count 11.7 T/CUMM (4-12)
[2017-11-19 16:07] LABS: Calcium 8.6 MG/DL (8.5-10.1); Osmolality,Calculated 293.3 MOS/KG (273-304); Potassium 3.8 MMOL/L (3.5-5.1)
[2017-11-19] MEDS ORDERED: MAGNESIUM SULF RIDER 4 GM in PREMIX 1 EACH IV PRN (16:18)
[2017-11-19] MEDS: INSULIN REGULAR 100 UNIT/ML SUBCUT SCH ×2 (17:01→20:53)
[2017-11-19] MEDS: INSULIN ASPART PROTAMINE/ASPART 70/30 100 UNIT/ML SUBCUT SCH (17:01)
[2017-11-19] MEDS: MAGNESIUM SULF RIDER 2 GM in PREMIX 1 EACH IV PRN ×2 (17:03→20:49)
[2017-11-19] MEDS: GABAPENTIN 300 MG CAPSULE PO SCH (20:52)
[2017-11-19] MEDS: INSULIN GLARGINE 100 UNIT/ML SUBCUT SCH (20:53)
[2017-11-20] MEDS: SODIUM CHLORIDE 0.9% 1,000 ML IV SCH ×2 (01:33→07:44)
[2017-11-20] MEDS: ACETAMINOPHEN 325 MG TABLET PO SCH ×5 (04:31→23:44)
[2017-11-20 05:43] LABS: Basophils % 0.4 % (0.0-0.8); Eosinophils % 0.1 % (0.00-10.9); Hematocrit 31.4 VOL% (35.7-47.0); Hemoglobin 10.5 GM/DL (12.0-16.0); Immature Granulocytes % 0.4 %; Immature Granulocytes Absolute 0.03 #; Lymphocytes # 1.5 10*3/uL (1.4-4.0); Lymphocytes % 18.2 % (21.3-54.2); Mean Corpuscular HGB Conc 33.4 GM/DL (32-36); Mean Corpuscular Hemoglobin 29 PG (27-34); Mean Corpuscular Volume 87.7 FL (87-102); Mean Platelet Volume 10.6 FL (9.6-12.0); Monocytes # 0.5 10*3/uL (0.11-0.8); Monocytes % 6.3 % (1.7-12.7); Neutrophils % 74.6 % (38.7-73.9); Platelet Count 185 T/CUMM (130-400); Red Blood Count 3.58 MC/CUMM (3.8-5.5)
[2017-11-20 06:18] LABS: Calcium 8.4 MG/DL (8.5-10.1); Potassium 3.7 MMOL/L (3.5-5.1)
[2017-11-20] MEDS ORDERED: POTASSIUM CHLORIDE 20 MEQ TABLET PO ONE (07:14)
[2017-11-20] MEDS: LEVOFLOXACIN 500 MG TABLET PO SCH (09:25)
[2017-11-20] MEDS: LACTATED RINGERS 1,000 ML IV SCH (09:25)
[2017-11-20] MEDS: GABAPENTIN 300 MG CAPSULE PO SCH ×2 (09:25→20:28)
[2017-11-20] MEDS: INSULIN ASPART PROTAMINE/ASPART 70/30 100 UNIT/ML SUBCUT SCH ×3 (09:25→16:52)
[2017-11-20] MEDS: INSULIN REGULAR 100 UNIT/ML SUBCUT SCH ×4 (09:26→20:26)
[2017-11-20] MEDS: SODIUM CHLOR 0.9% KCL 20 MEQ 20 MEQ/1,000 ML BAG IV SCH (09:26)
[2017-11-20] MEDS ORDERED: DEXTROSE 50% 25 GM/50 ML VIAL IV PRN (09:56)
[2017-11-20] MEDS ORDERED: GLUCAGON 1 MG VIAL IM PRN (09:56)
[2017-11-20] MEDS: INSULIN GLARGINE 100 UNIT/ML SUBCUT SCH (20:28)
[2017-11-21 06:18] LABS: Basophils % 0.3 % (0.0-0.8); Eosinophils # 0.1 10*3/uL (0.0-0.87); Eosinophils % 1.2 % (0.00-10.9); Hematocrit 29.4 VOL% (35.7-47.0); Hemoglobin 10.1 GM/DL (12.0-16.0); Immature Granulocytes % 0.7 %; Immature Granulocytes Absolute 0.05 #; Lymphocytes # 1.5 10*3/uL (1.4-4.0); Lymphocytes % 21.2 % (21.3-54.2); Mean Corpuscular HGB Conc 34.4 GM/DL (32-36); Mean Corpuscular Hemoglobin 30 PG (27-34); Mean Corpuscular Volume 87.2 FL (87-102); Mean Platelet Volume 10.8 FL (9.6-12.0); Monocytes # 0.4 10*3/uL (0.11-0.8); Monocytes % 6.4 % (1.7-12.7); Neutrophils # 4.8 10*3/uL (1.4-7.4); Neutrophils % 70.2 % (38.7-73.9); Platelet Count 172 T/CUMM (130-400); Red Blood Count 3.37 MC/CUMM (3.8-5.5); Red Cell Distribution Width 14.3 % (9.3-17.3); White Blood Count 6.9 T/CUMM (4-12)
[2017-11-21 06:38] LABS: Calcium 8.1 MG/DL (8.5-10.1); Potassium 3.8 MMOL/L (3.5-5.1)
[2017-11-21] MEDS: LACTATED RINGERS 1,000 ML IV SCH (06:40)
[2017-11-21] MEDS: ACETAMINOPHEN 325 MG TABLET PO SCH ×4 (06:40→23:36)
[2017-11-21] MEDS: INSULIN REGULAR 100 UNIT/ML SUBCUT SCH ×4 (08:18→20:29)
[2017-11-21] MEDS: INSULIN ASPART PROTAMINE/ASPART 70/30 100 UNIT/ML SUBCUT SCH ×3 (08:19→17:13)
[2017-11-21] MEDS: LEVOFLOXACIN 500 MG TABLET PO SCH (09:15)
[2017-11-21] MEDS: GABAPENTIN 300 MG CAPSULE PO SCH ×2 (09:15→20:29)
[2017-11-21] MEDS: SODIUM CHLOR 0.9% KCL 20 MEQ 20 MEQ/1,000 ML BAG IV SCH ×2 (09:16→20:30)
[2017-11-21] MEDS: INSULIN GLARGINE 100 UNIT/ML SUBCUT SCH (20:29)
[2017-11-22] MEDS: ACETAMINOPHEN 325 MG TABLET PO SCH ×2 (05:37→12:35)
[2017-11-22] MEDS: LACTATED RINGERS 1,000 ML IV SCH (06:00)
[2017-11-22 08:28] VITALS: BP 134/64
[2017-11-22] MEDS: INSULIN REGULAR 100 UNIT/ML SUBCUT SCH ×2 (08:56→12:34)
[2017-11-22] MEDS: INSULIN ASPART PROTAMINE/ASPART 70/30 100 UNIT/ML SUBCUT SCH ×2 (08:56→12:34)
[2017-11-22] MEDS: GABAPENTIN 300 MG CAPSULE PO SCH (08:58)
[2017-11-22] MEDS: LEVOFLOXACIN 500 MG TABLET PO SCH (08:58)
[2017-11-22] MEDS: SODIUM CHLOR 0.9% KCL 20 MEQ 20 MEQ/1,000 ML BAG IV SCH (11:34)
== END 2017-11-22 14:41 | disposition home or self-care (01) | DRG 661 ==
LOC: N.OR 05:58 → N.SDSINP 05:59 → N.5E 12:13
PROVIDERS: ADMIT Surgery; ATTEND Surgery